=== PATIENT | female | born 1950 | race Caucasian/White ===

== ENCOUNTER → 2018-11-01 | Outpatient (CLI) | payer MEDICARE, OTHER ==
[~2018-11-01] MED LIST: GADOBENATE DIMEGLUMINE 1 ML IV ONE
[2018-11-01 10:20] LABS: BLOOD UREA NITROGEN 18 mg/dL (7-26); BUN/CREATININE RATIO 21 (6-25); CREATININE, SERUM 0.85 mg/dL (0.57-1.11); EST GLOMERULAR FILTRATION RATE > 60 ML/MIN (60-)
--- NOTE | 2018-11-01 13:21 | Diagnostic Imaging Report ---
TECHNIQUE: Magnetic resonance imaging of the LEFT SHOULDER was performed WITH and WITHOUT injected contrast, 14 cc of intravenous MultiHance. COMPARISON: None available HISTORY: Left supraclavicular mass, mother had lymphoma, fall, swollen FINDINGS: A skin marker in the region of the anterolateral aspect of the base of the neck, axial image 2 through 4, given this location this is a limited evaluation of the soft tissues underlying the region of the skin marker. MUSCLES AND TENDONS: Rotator Cuff: Tendons: Supraspinatus and infraspinatus: A full-thickness tear centered at the supraspinatus, just anterior to the conjoined tendon. The full-thickness defect is less than 1 cm, adjacent fibrillation and delamination. Associated multilobulated cyst adjacent to the myotendinous junction, measuring in greatest dimensions 1.1 cm (AP) x 2.8 cm (ML) x 0.8 cm (CC). Teres Minor: Intact Subscapularis: Intact Muscles: No focal muscle atrophy. Biceps Tendon: The long head of the biceps tendon is within the intertubercular groove, low-grade partial tearing of the intra-articular portion. GLENOHUMERAL JOINT: Glenoid Labrum: Mild degenerative tearing, most notably the posterior superior and posterior labrum. Articular Cartilage: Low-grade diffuse erosion. Joint Fluid: Small nonspecific effusion with synovitis. ACROMIOCLAVICULAR JOINT: Mild hypertrophic degenerative changes of the acromioclavicular joint. Trace effusion. BONE: Lateral downsloping of the acromion. No focal or infiltrative bone marrow replacing abnormality. No acute fracture. SOFT TISSUES: Fluid within the subacromial/subdeltoid bursa, in keeping with full-thickness rotator cuff tear. Adjacent to the left lung apex, a focal area of amorphous mild edema and hyperemia, which is difficult to completely characterize on these images (series 6 image 27). IMPRESSION: 1. Amorphous left chest wall focal edema and hyperemia near the left lung apex, recommend a CT of the chest with contrast for further characterization. 2. If there is concern regarding the neck and supraclavicular soft tissues, such as lymphadenopathy, a CT of the neck with contrast would provide better characterization of this region. 3. Focal full-thickness supraspinatus tear with associated delamination and ganglion cyst near the myotendinous junction. 4. Tendinosis and low-grade partial-thickness tearing of the long head of the biceps tendon. 5. Degenerative changes of the acromioclavicular and glenohumeral joints, including mild degenerative tearing of the glenoid labrum. Signed by: Dr. Fabrizio Dhillon D.O., M.M.M. on 11/01/2018 1:18 PM
== END ==
LOC: MRI 09:24
PROVIDERS: ATTEND Family Medicine
DX: R22.32 Localized swelling, mass and lump, left upper limb (principal)
CPT/HCPCS: 36415; 82565; 84520

== ENCOUNTER → 2019-06-02 | Outpatient (CLI) | payer MEDICARE, OTHER ==
[~2019-06-02] MED LIST changes: -GADOBENATE DIMEGLUMINE 1 ML IV ONE; +IOPAMIDOL 370 MG/ML 200 ML INFUS..BTL INJ ONE; +SODIUM CHLORIDE 0.9% 50ML 50 ML ONE
[2019-06-02 09:55] LABS: BLOOD UREA NITROGEN 14 mg/dL (7-26); BUN/CREATININE RATIO 18 (6-25); EST GLOMERULAR FILTRATION RATE > 60 ML/MIN (60-)
--- NOTE | 2019-06-02 11:19 | Diagnostic Imaging Report ---
EXAM: CT Chest WITH intravenous contrast 06/02/2019 9:18 AM INDICATION: Supraclavicular mass COMPARISON: None TECHNIQUE: Chest was scanned utilizing a multidetector helical scanner from the lung apex through the level of the adrenal glands after administration of IV contrast. Coronal and sagittal reformations were obtained. Routine protocol was performed. IV CONTRAST: 100mL Isovue 370 RADIATION DOSE: Total DLP: 605.9 mGy*cm. Dose modulation, iterative reconstruction, and/or weight based adjustment of the mA/kV was utilized to reduce the radiation dose to as low as reasonably achievable. COMPLICATIONS: None FINDINGS: LINES/ TUBES: None. NECK: The soft tissues of the neck appear unremarkable. No suspicious left cervical or supraclavicular mass lesion. The parotid glands and submandibular glands appear unremarkable. The orbits appear unremarkable. The paranasal sinuses and mastoid air cells are clear. The visualized arteries of the [place] are patent. This study is not tailored for evaluation of intracranial structures however the partially visualized brain parenchyma appears unremarkable. No intracranial hemorrhage or mass lesion identified. LUNGS AND AIRWAYS: The central airways are patent. No focal consolidation. No pulmonary edema. Bibasilar dependent subsegmental atelectasis. 6 mm posterior left lower lobe pulmonary nodule (series 602 image 94). Scattered thin-walled cysts in both lungs. PLEURA: No pleural effusion or pneumothorax. HEART AND MEDIASTINUM: The thyroid gland appears unremarkable. No supraclavicular, mediastinal, hilar, axillary, subpectoral, or internal mammary lymphadenopathy. The heart is not enlarged. No pericardial effusion. Mild scattered calcifications of the coronary arteries and thoracic aorta. UPPER ABDOMEN: Limited contrast-enhanced views of the upper abdomen demonstrate a subcentimeter cyst in the right liver and a small hiatal hernia. No other focal abnormality of the partially visualized liver, gallbladder, spleen, adrenals, superior portions of both kidneys, and pancreas. BONES: No acute osseous injury. Degenerative changes of the visualized spine. No suspicious lytic or blastic lesions. SOFT TISSUES: Unremarkable. IMPRESSION: No acute findings in the neck or chest. Specifically, no evidence of suspicious mass lesion or lymphadenopathy in the left cervical or supraclavicular soft tissues. 6 mm posterior left lower lobe pulmonary nodule. If the patient is low risk, recommend CT at 6-[address] at 18-24 months. If the patient is high risk recommend CT at 6-12 months followed by another CT at 18-24 months per [employer] society guidelines 2017. Signed by: Elai Jiménez MD on 06/02/2019 11:16 AM
== END ==
LOC: CT 08:46
PROVIDERS: ATTEND Family Medicine
DX: R07.9 Chest pain, unspecified (principal); I34.1 Nonrheumatic mitral (valve) prolapse; M25.512 Pain in left shoulder; M25.812 Other specified joint disorders, left shoulder; R93.5 Abnormal findings on diagnostic imaging of other abdominal regions, including retroperitoneum; R91.8 Other nonspecific abnormal finding of lung field
CPT/HCPCS: 36415; 70491; 71260; 82565; 84520; Q9967

== ENCOUNTER → 2019-06-08 | Outpatient (CLI) | payer MEDICARE, OTHER ==
--- NOTE | 2019-06-09 13:10 | EXERCISE STRESS TEST ---
DATE OF STUDY: 06/08/2019 09:32:00 Stress Test - Treadmill ONLY STUDY FINDINGS: The patient reported feeling some symptoms that she cannot describe. At rest, the blood pressure and heart rate were normal and she had single PVCs at rest. The patient exercised on Carl protocol for a total of 5 minutes and 56 seconds reaching greater than 85% of her age predicted maximum. The PVCs seen at rest were suppressed with exercise. There was no ST changes. No chest pain. The maximum blood pressure was 158/99. FINAL IMPRESSION: 1. Negative stress test for ischemia. 2. No chest pain. 3. Single PVCs seen at rest or extinguish with exercise. 4. Normal blood pressure response. 5. Normal stress test. MD JEFF Tristan/MICKEY /[id number] cc: Dayday Zepeda DO
== END ==
LOC: CARD 09:17
PROVIDERS: ATTEND Family Medicine
DX: R07.9 Chest pain, unspecified (principal); R93.5 Abnormal findings on diagnostic imaging of other abdominal regions, including retroperitoneum; M25.512 Pain in left shoulder; M25.812 Other specified joint disorders, left shoulder; I34.1 Nonrheumatic mitral (valve) prolapse
CPT/HCPCS: 93017; 93306

== ENCOUNTER → 2019-09-13 | Outpatient (CLI) | payer OTHER, MEDICARE ==
[2019-09-13 10:32] LABS: BASOPHILS # (AUTO) 0.1 (0.0-0.1); BASOPHILS % 1.1 % (0.0-1.0); EOSINOPHILS # (AUTO) 0.3 (0.0-0.4); EOSINOPHILS % 4.6 % (0.0-6.0); HEMOGLOBIN 15.1 g/dL (12.0-16.0); LYMPHOCYTES # (AUTO) 1.7 (1.0-3.2); LYMPHOCYTES % 27.5 % (18.0-39.1); MEAN CORPUSCULAR HEMOGLOBIN 31.3 pg (28-32); MEAN CORPUSCULAR HGB CONC 33.6 g/dL (31-35); MEAN CORPUSCULAR VOLUME 93.4 fL (81-99); MONOCYTES # (AUTO) 0.7 (0.2-0.8); MONOCYTES % 10.5 % (4.4-11.3); NEUTROPHILS # (AUTO) 3.5 (2.1-6.9); PLATELET COUNT 288 x10e3/uL (140-360); RED BLOOD COUNT 4.82 x10e6/uL (3.6-5.1); RED CELL DISTRIBUTION WIDTH 12.5 % (11.7-14.4)
[2019-09-13 10:55] LABS: ALBUMIN 3.8 g/dL (3.5-5.0); ANION GAP 12.5 mmol/L (8-16); CALCIUM 9.9 mg/dL (8.4-10.2); CHOL/HDL RATIO 4.7 (3.0-3.6); CREATININE, SERUM 0.97 mg/dL (0.57-1.11); POTASSIUM 3.5 mmol/L (3.5-5.1)
== END ==
LOC: LAB 10:11
PROVIDERS: ATTEND Internal Medicine Cardiovascular Disease
DX: R94.31 Abnormal electrocardiogram [ECG] [EKG] (principal); I10 Essential (primary) hypertension
CPT/HCPCS: 36415; 80053; 80061; 85025

== ENCOUNTER → 2019-12-21 | Outpatient (CLI) | payer MEDICARE, OTHER ==
[2019-12-21 11:13] LABS: BLOOD UREA NITROGEN 16 mg/dL (7-26); BUN/CREATININE RATIO 19 (6-25); CREATININE, SERUM 0.83 mg/dL (0.57-1.11); EST GLOMERULAR FILTRATION RATE > 60 ML/MIN (60-)
[2019-12-21 12:51] LABS: BASOPHILS # (AUTO) 0.1 (0.0-0.1); BASOPHILS % 0.9 % (0.0-1.0); EOSINOPHILS # (AUTO) 0.2 (0.0-0.4); EOSINOPHILS % 3.7 % (0.0-6.0); HEMATOCRIT 39.2 % (34.2-44.1); LYMPHOCYTES % 30.9 % (18.0-39.1); MEAN CORPUSCULAR HGB CONC 33.2 g/dL (31-35); MEAN CORPUSCULAR VOLUME 93.6 fL (81-99); MONOCYTES # (AUTO) 0.6 (0.2-0.8); MONOCYTES % 9.5 % (4.4-11.3); NEUTROPHILS # (AUTO) 3.6 (2.1-6.9); NEUTROPHILS % 54.7 % (38.7-80.0); PLATELET COUNT 237 x10e3/uL (140-360); RED BLOOD COUNT 4.19 x10e6/uL (3.6-5.1); RED CELL DISTRIBUTION WIDTH 12.4 % (11.7-14.4)
[2019-12-21 13:06] LABS: ALANINE AMINOTRANSFERASE 17 IU/L (0-55); ALBUMIN 3.8 g/dL (3.5-5.0); ALBUMIN/GLOBULIN RATIO 1.4 (0.8-2.0); ALKALINE PHOSPHATASE 70 IU/L (40-150); ANION GAP 11.8 mmol/L (8-16); BLOOD UREA NITROGEN 15 mg/dL (7-26); BUN/CREATININE RATIO 19 (6-25); CALCIUM 9.4 mg/dL (8.4-10.2); CARBON DIOXIDE 25 mmol/L (22-29); CHLORIDE 106 mmol/L (98-107); CHOLESTEROL 179 MD/DL (0-199); CREATININE, SERUM 0.79 mg/dL (0.57-1.11); EST GLOMERULAR FILTRATION RATE > 60 ML/MIN (60-); GLUCOSE 91 mg/dL (74-118); HDL CHOLESTEROL 59 MG/DL (40-60); LDL CHOLESTEROL 104 MG/DL (60-130); PHOSPHORUS 3.8 MG/DL (2.3-4.7); POTASSIUM 3.8 mmol/L (3.5-5.1); SODIUM 139 mmol/L (136-145); TRIGLYCERIDES 82 MG/DL (0-149)
[2019-12-21 13:27] LABS: THYROID STIMULATING HORMONE 2.304 uIU/mL (0.350-4.940)
--- NOTE | 2019-12-21 14:20 | Diagnostic Imaging Report ---
CT of the chest, with contrast. History: Pulmonary nodule. Comparison: CT chest with contrast from 06/02/2019. Technique: Multidetector CT scanning of the chest was performed from the level of the apices to the upper abdomen after intravenous administration of contrast. Coronal and sagittal multiplanar reformations were obtained. RADIATION DOSE: Total DLP: 509.04 mGy*cm Dose modulation, iterative reconstruction, and/or weight based adjustment of the mA/kV was utilized to reduce the radiation dose to as low as reasonably achievable. FINDINGS: The thyroid and remaining visualized structures within the base of the neck demonstrate no significant abnormalities. The thoracic aorta is normal course and caliber. The heart is not enlarged. Atherosclerotic calcifications are noted within the coronary arteries. No abnormal pericardial fluid is present. There is no abnormal axillary, mediastinal, or hilar lymph node enlargement. The trachea and proximal airways are patent. Again noted are scattered thin-walled cysts within both lungs, unchanged from the prior examination. There is a stable 6 mm pulmonary nodule identified within the peripheral left lower lobe (axial image 80). There is mild bilateral dependent density/atelectasis present. There is no evidence for consolidation, pneumothorax, new mass/pulmonary nodule, or pleural fluid. There is a small hiatal hernia. A stable appearing subcentimeter hypodensity is identified within the liver. The remaining visualized upper abdominal contents demonstrate no significant abnormalities. The osseous structures demonstrate stable changes without evidence for acute fracture or destructive process. The extrathoracic soft tissues are unremarkable. IMPRESSION: Stable 6 mm pulmonary nodule identified within the left lower lobe. No new nodule identified. Recommend continued follow-up examination as outlined on the initial examination from 06/02/2019. Additional stable findings as above. Signed by: Dr. Moreno Jeffers MD on 12/21/2019 2:18 PM
== END ==
LOC: CT 10:31
PROVIDERS: ATTEND Family Medicine
DX: R91.1 Solitary pulmonary nodule (principal)
CPT/HCPCS: 36415; 71260; 80053; 80061; 82565; 82607; 82652; 82746; 84100; 84207; 84443; 84480; 84481; 84520; 85025; Q9967